=== PATIENT | male | born 2000 | race Hispanic/Latino ===

== ENCOUNTER 2021-02-28 02:41 | Inpatient (IN) | payer OTHER, BC ==
[2021-02-28 02:59] LABS: #Basophils 0.2 thou/uL (0.0-0.2); #Eosinphils 0.3 thou/uL (0.0-0.7); #Lymphocytes 4.3 thou/uL (1.20-3.40); #Monocytes 1.2 thou/uL (0.11-0.59); %Basophils 0.9 % (0.0-1.0); %Eosinophils 1.5 % (0.0-10.0); %Lymphocytes 25.5 % (21.0-51.0); %Monocytes 7.3 % (0.0-10.0); %Neutrophils 64.7 % (42.0-75.0); Hemoglobin 16.9 g/dL (14.0-18.0); Mean Corpuscular HGB CONC 34.9 g/dL (32.0-36.0); Mean Corpuscular Hemoglobin 31.1 pg (27.0-31.0); Mean Corpuscular Volume 89.1 fL (78.0-98.0); Mean Platelet Volume 8.5 fL (7.4-10.4); Platelet Count 273 thou/uL (130-400); RBC Distribution Width 11.4 % (11.5-14.5); Red Blood Cell (RBC) Count 5.44 mill/uL (4.70-6.10)
[2021-02-28] MEDS ORDERED: Fentanyl CADD 100 ML IV SCH ×2 (03:00→05:15)
[2021-02-28] MEDS ORDERED: Boostrix 0.5 ML (Tdap) VIAL IM ONE (03:00)
[2021-02-28 03:05] LABS: INR-International Normal Ratio 1.1; PTT 27.4 sec (22.9-36.1)
[2021-02-28 03:13] LABS: ALT (SGPT) 125 U/L (8-55); AST (SGOT) 127 U/L (5-34); Albumin 4.6 g/dL (3.5-5.0); Alcohol 239 mg/dL (Less than 10); Alkaline Phosphatase 88 U/L (40-110); Anion Gap 17 mmol/L (10-20); BUN (Urea Nitrogen) 6 mg/dL (8.9-20.6); Bilirubin, Total 1.2 mg/dL (0.2-1.2); CK (CPK) 437 U/L (30-200); Calc. Creatinine Clearance 0 mL/min (70-130); Calcium 9.4 mg/dL (7.8-10.44); Carbon Dioxide 23 mmol/L (22-29); Chloride 101 mmol/L (98-107); Globulin 4.1 g/dL (2.4-3.5); Glucose 131 mg/dL (70-105); Lipase 41 U/L (8-78); Protein, Total 8.7 g/dL (6.0-8.3); Sodium 138 mmol/L (136-145)
[2021-02-28] MEDS ORDERED: Ventilator Sedation Protocol 1 EACH FS ONE (04:00)
[2021-02-28] MEDS ORDERED: Ondansetron PF 4 MG/2 ML Vial IVP PRN (04:00)
[2021-02-28] MEDS ORDERED: Promethazine HCl 25 MG/ML VIAL IM PRN (04:00)
[2021-02-28] MEDS ORDERED: Sodium Chloride 0.9% 1,000 ML IV SCH ×2 (04:00→09:15)
[2021-02-28] MEDS ORDERED: HumaLOG 300 UNITS/3 ML VIAL SC PRN (04:00)
[2021-02-28] MEDS ORDERED: Dextrose 5% in Water 1,000 ML IV PRN (04:00)
[2021-02-28] MEDS ORDERED: Dextrose 50% Abboject 50 ML SYRINGE SLOW IVP PRN (04:00)
[2021-02-28] MEDS ORDERED: Propofol 1,000 MG/100 ML VIAL IV ONE (04:18)
[2021-02-28 04:30] LABS: Bacteria/HPF None Seen HPF (None Seen); Bilirubin Negative (Negative); Blood, Urine 2+ (Negative); Clarity Clear (Clear); Glucose, Urine (Dipstick) Normal (Negative); Ketone, Urine Negative (Negative); Leukocyte Negative Leu/uL (Negative); Nitrite Negative (Negative); Protein, Urine (Dipstick) 200 mg/dL (Neg-Trace); RBC/HPF 0-3 HPF (0-3); Specific Gravity, Urine 1.026 (1.002-1.036); Squamous Epithelial 0-3 HPF (0-3); Urobilinogen Normal mg/dL (Less than 2); WBC/HPF 0-3 HPF (0-3)
[2021-02-28 04:35] LABS: Amphetamine Detected (NotDetected); Barbiturates Screen Not Detected (NotDetected); Benzodiazepine Screen Not Detected (NotDetected); Cocaine Metabolite Screen Not Detected (NotDetected); Medtox Control Line Valid? VALID (VALID); Medtox Reader # READER 1; Methadone Not Detected (NotDetected); Methamphetamine Not Detected (NotDetected); Opiate Screen Not Detected (NotDetected); Oxycodone Screen Not Detected (NotDetected); Phencyclidine (PCP) Not Detected (NotDetected); THC/Cannabinoid Screen Detected (NotDetected); Tricyclic Screen Not Detected (NotDetected)
[2021-02-28] MEDS ORDERED: Lidocaine 1% w/Epinephrine 1:100K 20 ML VIAL ONE ×2 (04:52→05:20)
[2021-02-28 05:04] LABS: Phosphorus 4.3 mg/dL (2.3-4.7)
[2021-02-28] MEDS ORDERED: Morphine 2 MG/ML VIAL SLOW IVP PRN (05:15)
[2021-02-28] MEDS ORDERED: Fentanyl BOLUS 250 ML IVPB PRN (05:15)
[2021-02-28] MEDS ORDERED: Propofol BOLUS 1,000 MG/100 ML VIAL IV PRN (05:15)
[2021-02-28] MEDS ORDERED: DISCONTINUE PREVIOUS NARCOTIC PAIN MEDICATIONS AND BENZODIAZEPINES FS SCH (05:15)
[2021-02-28] MEDS ORDERED: Lorazepam 2 MG/ML VIAL SLOW IVP PRN (05:15)
[2021-02-28] MEDS ORDERED: Propofol 1,000 MG/100 ML VIAL IV PRN (05:15)
[2021-02-28 06:43] LABS: Lactic Acid 2.5 mmol/L (0.5-2.2)
[2021-02-28 07:41] LABS: Actual Bicarbonate (HCO3a) 20.6 mEq/L (22-28); Analyzer IN Cardio ER; Base Excess (BEa) -4.9 mEq/L (-2.0 to +3.0); CO2 Tension 39.9 mmHg (35.0-45.0); Calcium, Ionized (arterial) 1.13 mmol/L (1.12-1.30); Carboxyhemoglobin (COHb) 0.3 gm% (0.0-3.0); Hemoglobin (Hb) 16.2 g/dL (14.0-18.0); O2 Tension (PaO2), arterial 485.6 mmHg (80.0-100.0); Potassium - ABG Lab 3.08 mmol/L (3.70-5.30); pH, Arterial 7.33 (7.35-7.45)
[2021-02-28 08:05] VITALS: BMI 34.4
[2021-02-28 08:08] LABS: SARS-CoV-2 NAA Rapid Test Not Detected (NotDetected)
[2021-02-28] MEDS: Famotidine/PF 20 mg/2ml Vial SLOW IVP SCH ×2 (08:54→20:32)
[2021-02-28] MEDS: Sodium Chloride 0.9% 1,000 ML IV SCH ×3 (09:29→20:32)
[2021-02-28] MEDS: Potassium Chloride 20 MEQ in Premix Bag 1 BAG IVPB SCH ×2 (09:30→13:41)
[2021-02-28] MEDS ORDERED: Iopamidol 370 76% 100 ML VIAL ONE (10:14)
[2021-02-28] MEDS ORDERED: Fentanyl CADD 100 ML ONE (10:59)
[2021-02-28] MEDS ORDERED: Acetaminophen W/ Codeine 5 ML UDCUP PO PRN (11:33)
[2021-02-28] MEDS ORDERED: DC Sedation Protocol FS ONE (11:34)
[2021-02-28] MEDS: Acetaminophen 650 MG/20.3 ML UDCUP PO SCH ×3 (13:26→23:40)
[2021-03-01] MEDS: Sodium Chloride 0.9% 1,000 ML IV SCH ×3 (03:57→17:30)
[2021-03-01 04:53] LABS: ALT (SGPT) 63 U/L (8-55); AST (SGOT) 51 U/L (5-34); Albumin 3.4 g/dL (3.5-5.0); Alkaline Phosphatase 65 U/L (40-110); Anion Gap 11 mmol/L (10-20); BUN (Urea Nitrogen) 7 mg/dL (8.9-20.6); Bilirubin, Total 3.1 mg/dL (0.2-1.2); Calc. Creatinine Clearance 258 mL/min (70-130); Calcium 8.9 mg/dL (7.8-10.44); Carbon Dioxide 26 mmol/L (22-29); Chloride 103 mmol/L (98-107); Globulin 3.1 g/dL (2.4-3.5); Glucose 101 mg/dL (70-105); Magnesium 1.9 mg/dL (1.6-2.6); Potassium 3.7 mmol/L (3.5-5.1); Protein, Total 6.5 g/dL (6.0-8.3); Sodium 136 mmol/L (136-145)
[2021-03-01 04:54] LABS: CK (CPK) 961 U/L (30-200); Phosphorus 2.6 mg/dL (2.3-4.7)
[2021-03-01] MEDS: Acetaminophen 650 MG/20.3 ML UDCUP PO SCH ×3 (05:03→17:29)
[2021-03-01 05:57] LABS: Band 19 % (5-11); Hemoglobin 12.4 g/dL (14.0-18.0); Lymphocytes 8 % (21-51); MDiff Complete? YES; Mean Corpuscular HGB CONC 33.8 g/dL (32.0-36.0); Mean Corpuscular Hemoglobin 30.4 pg (27.0-31.0); Mean Corpuscular Volume 89.8 fL (78.0-98.0); Mean Platelet Volume 8.9 fL (7.4-10.4); Monocytes 14 % (0-10); Neutrophil 58 % (42-75); Platelet Count 159 thou/uL (130-400); RBC Distribution Width 11.4 % (11.5-14.5); Red Blood Cell (RBC) Count 4.07 mill/uL (4.70-6.10)
[2021-03-01] MEDS: Famotidine/PF 20 mg/2ml Vial SLOW IVP SCH (08:21)
[2021-03-01] MEDS: Famotidine 20 MG TAB PO SCH ×2 (08:41→21:00)
[2021-03-02] MEDS: Acetaminophen 650 MG/20.3 ML UDCUP PO SCH ×3 (00:56→15:40)
[2021-03-02] MEDS: Sodium Chloride 0.9% 1,000 ML IV SCH ×3 (03:00→15:40)
[2021-03-02] MEDS: Famotidine 20 MG TAB PO SCH (08:32)
[2021-03-02 13:57] VITALS: BP 124/75
[2021-03-02 16:29] VITALS: TEMP 98.2
[2021-03-08 11:23] LABS: ALV-art Gradient 177.525 mmHg (0-20); Puncture Site RRA
== END 2021-03-02 16:30 | disposition home or self-care (01) | DRG 500 ==
LOC: EDBD 02:41 → ERS 02:41 → CCU 04:00
PROVIDERS: ADMIT Surgery; ATTEND Surgery
PROC: 5A1935Z Respiratory Ventilation, Less than 24 Consecutive Hours (ICD-10-PCS; principal; 2021-02-28)
PROC: 0JQ10ZZ Repair Face Subcutaneous Tissue and Fascia, Open Approach (ICD-10-PCS; 2021-02-28)
PROC: 0CQ00ZZ Repair Upper Lip, Open Approach (ICD-10-PCS; 2021-02-28)
PROC: 02HV33Z Insertion of Infusion Device into Superior Vena Cava, Percutaneous Approach (ICD-10-PCS; 2021-02-28)
PROC: 0CDWXZ1 Extraction of Upper Tooth, Multiple, External Approach (ICD-10-PCS; 2021-02-28)
PROC: 2W3DX1Z Immobilization of Left Lower Arm using Splint (ICD-10-PCS; 2021-03-01)
DX: S52.602A Unspecified fracture of lower end of left ulna, initial encounter for closed fracture (principal); J96.00 Acute respiratory failure, unspecified whether with hypoxia or hypercapnia; I46.8 Cardiac arrest due to other underlying condition; R40.2312 Coma scale, best motor response, none, at arrival to emergency department; R40.2112 Coma scale, eyes open, never, at arrival to emergency department; R40.2212 Coma scale, best verbal response, none, at arrival to emergency department; R65.11 Systemic inflammatory response syndrome (SIRS) of non-infectious origin with acute organ dysfunction; S06.0X9A Concussion with loss of consciousness of unspecified duration, initial encounter; E87.2 Acidosis; S02.42XA Fracture of alveolus of maxilla, initial encounter for closed fracture; T79.6XXA Traumatic ischemia of muscle, initial encounter; F10.129 Alcohol abuse with intoxication, unspecified; S01.511A Laceration without foreign body of lip, initial encounter; S02.5XXA Fracture of tooth (traumatic), initial encounter for closed fracture; E87.6 Hypokalemia; S01.81XA Laceration without foreign body of other part of head, initial encounter; S52.122A Displaced fracture of head of left radius, initial encounter for closed fracture; S82.451A Displaced comminuted fracture of shaft of right fibula, initial encounter for closed fracture; S62.315A Displaced fracture of base of fourth metacarpal bone, left hand, initial encounter for closed fracture; Y90.7 Blood alcohol level of 200-239 mg/100 ml; V03.99XA Pedestrian with other conveyance injured in collision with car, pick-up truck or van, unspecified whether traffic or nontraffic accident, initial encounter; Y92.410 Unspecified street and highway as the place of occurrence of the external cause
CPT/HCPCS: 0240U; 29125; 36415; 36416; 36556; 36600; 70450; 70486; 70498; 71045; 71260; 72125; 72170; 74177; 80053; 80306; 80307; 81003; 81015; 82550; 82805; 83605; 83690; 83735; 84100; 85025; 85610; 85730; 86850; 86900; 86901; 90471; 90715; 93005; 94002; 94640; 94760; 96365; 96366; 96368; 99292; G0390; J2704; J3010; J3480; J7620; Q9967; S0028